=== PATIENT | female | born 1945 | race Caucasian/White ===

== ENCOUNTER → 2018-12-24 | Outpatient (CLI) | payer MEDICARE ==
[~2018-12-24] MED LIST: IOPAMIDOL 370 MG/ML 200 ML INFUS..BTL INJ ONE; SODIUM CHLORIDE 0.9% 50ML 50 ML ONE
[2018-12-24 10:12] LABS: BLOOD UREA NITROGEN 9 mg/dL (7-26); BUN/CREATININE RATIO 10 (6-25); CREATININE, SERUM 0.89 mg/dL (0.57-1.11); EST GLOMERULAR FILTRATION RATE > 60 ML/MIN (60-)
--- NOTE | 2018-12-24 11:31 | Diagnostic Imaging Report ---
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 TECHNIQUE: Axial CT images were obtained through the neck with intravenous, iodine based contrast. Coronal and sagittal reconstructions obtained from the axial data. One or more of the following dose reduction techniques were used: Automated exposure control, adjustment of the mA and/or kV according to patient size, and/or utilization of iterative reconstruction technique. Dental streak artifacts obscure some details. DISCUSSION: The left torus tubarius is mildly atrophic. The left hemitongue is mildly atrophic with mild fatty replacement. 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 The visualized upper aerodigestive tract is otherwise unremarkable. A mildly prominent left submandibular lymph node measures 1.3 cm. No other radiographically significant cervical adenopathy is seen. The thyroid gland is atrophic. The bilateral submandibular and left parotid glands are atrophic. The right parotid gland is unremarkable. Mild bilateral carotid bulb calcified plaque is present without significant stenosis. 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 The left sternocleidomastoid muscle is atrophic. Otherwise, the design leader, parapharyngeal, posterior cervical, and perivertebral spaces are unremarkable. Bilateral ocular lens replacement. Otherwise, the visualized intracranial compartment and orbits are grossly unremarkable. There is minimal mucosal thickening in the right maxillary sinus. Small right and trace left mastoid effusions are present. There are mild degenerative changes throughout the spine. There is scarring in the bilateral medial upper lungs. IMPRESSION: 1. Mildly atrophic left torus tubarius and left tongue may be due to posttreatment change. 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 2. 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 3. The visualized upper aerodigestive tract is otherwise unremarkable. 4. Mildly prominent left submandibular lymph node. No other radiographically significant cervical adenopathy. 5. Scarring in the bilateral medial upper lungs. Signed by: Dr. Desmond Vincent M.D. on 12/24/2018 11:27 AM
== END ==
LOC: CT 09:15
PROVIDERS: ATTEND Otolaryngology
DX: R13.13 Dysphagia, pharyngeal phase (principal); R05 Cough
CPT/HCPCS: 36415; 70491; 82565; 84520; Q9967

== ENCOUNTER → 2018-12-31 | Outpatient (CLI) | payer MEDICARE ==
--- NOTE | 2018-12-31 16:24 | Diagnostic Imaging Report ---
PROCEDURE: X-RAY MODIFIED BARIUM SWALLOW COMPARISON: None. INDICATION: Dysphasia Radiation Details: Fluoroscopy time: 2.5 minutes Cumulative dose: 5.3 mGy DISCUSSION: Fluoroscopic examination was performed in conjunction with speech pathology during swallowing a variety of thin and thick liquid consistencies. Provided images demonstrate mild laryngeal penetration and no aspiration. CONCLUSION: Modified barium swallow demonstrating mild laryngeal penetration and no aspiration. Please refer to the speech pathology report for further details. Signed by: Jenni Curtis MD on 12/31/2018 4:20 PM
== END ==
LOC: DX 13:39
PROVIDERS: ATTEND Otolaryngology
DX: R13.13 Dysphagia, pharyngeal phase (principal); R05 Cough
CPT/HCPCS: 74230

== ENCOUNTER 2019-02-05 12:30 | Outpatient (RCR) | payer MEDICARE ==
--- NOTE | 2019-01-09 13:15 | NUR ---
Clinical Swallow Evaluation/Initial Treatment Session Patient is a 73 year old female with diagnosis of dysphagia. Pt with c/o coughing/choking with PO intake. PMH: left tonsilar CA in 2000 with chemotherapy and radiation treatments, pt with residula decrease in saliva and lingual weakness. 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 Pt takes medication for reflux and has constant throat clearing prior to evaluation. Pt presented with nasal emisions with speech, concern for velopharyngeal incompetency as pt c/o liquids coming out of her left nostril at times since surgery to remove skin CA on/in nose CT of neck 12/24/18 1. Mildly atrophic left torus tubarius and left tongue may be due to posttreatment change. 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 2. Mild medial deviation of the left true vocal fold suggest left vocal cordpalsy. 3. The visualized upper aerodigestive tract is otherwise unremarkable. 4. Mildly prominent left submandibular lymph node. No other radiographically significant cervical adenopathy. 5. Scarring in the bilateral medial upper lungs.Pt participated in a modified barium swallow study on 12/31/18. MBS results: Pt with considerable pharyngeal residue and compromised airway caused by reduced tongue base strength and reduced pharyngeal constriction. Nasal regurgitation not witnessed on exam, palatal weakness present. Clinical Impressions Pt with oropharyngeal dysphagia with penetration of liquids and considerable pharyngeal residue post swallow. Dysphagia was judged to be secondary to decreased coordination of the swallow, decreased tongue base strength, and decreased pharyngeal constriction. Patient was seen today in the outpatient clinic for initial treatment of Neuromuscular Electrical Stimulation (NMES) with VitalStim Therapy and traditional dysphagia therapy with pharyngeal exercises. Pt was seen with no family present. Pt was able to participate in an oral motor exam. Patient tolerates room air. Hearing appeared to be WFL. Provided extensive education re: basic anatomy and physiology of swallow structures, need for therapy, purpose of exercises and NMES, and future plan of care. Pt indicated understanding. Pt was given intermittent small trials of water. Pt was instructed to take small sips and swallow hard, feeling all the muscles in her throat contract. Placement 3b was used to target the mylohyoid muscle, the anterior belly of the digastric muscle, the sternohyoid muscle, the omohyoid muscle, the geniohyoid muscle, and the middle pharyngeal constrictors. Channel 1 of the electrodes was aligned horizontally just above the hyoid bone and channel 2 of the electrodes was aligned horizontally at the level of the thyroid notch. This placement was used to improve base of tongue strength, pharyngeal constriction, and UES function. Pt initially tolerated 7.5 mA, but as the session progressed pt tolerated 10.5 mA. Pt received 53 minutes of stimulation. Cough noted X 0, throat clear X 6. Education provided as indicated. All questions were answered. Impressions: Pt tolerated initial session of NMES well. Pt/family continues to report and demonstrate s/s of aspiration during swallows of material for pleasure which, per her family, significantly interferes with her quality of life. Pt is a good candidate for dysphagia exercises and NMES for improvement of strength and coordination of swallow. Recommendations: 1. Dysphagia therapy to include traditional exercises and NMES 3X/week for 4 weeks for a total of 12 treatment sessions 2. Home exercise program 3. Repeat MBS in 4 weeks with new goals to be determined at that time Penitentiary Goal: Pt will tolerate least restrictive diet without s/s of aspiration as judged by an objective evaluation. Short Term Goals: 1. Pt will complete 3 repetitions of a set of dysphagia exercises to improve laryngeal elevation, base of tongue retraction, and laryngeal closure, 10 repetitions per exercise, with minimal cues. 2. Pt will tolerate NMES for 45 60 minutes with no clinical s/s of aspiration to improve strength of pharyngeal constrictors, hyolaryngeal excursion, and safety with po intake. 3. Pt will complete home dysphagia exercise program targeting laryngeal elevation, base of tongue strength, cricopharyngeal function, neck stretches post radiation therapy, palatal strengthening independently. 4. Pt will follow aspiration precautions with independence. 5. Pt will participate in a repeat Modified Barium Swallow study to objectively re-assess swallow safety and function and determine safest diet. Gretchen Prather M.S. CCC-NUMERICAL CONTROL OPERATOR Date of Session: 01/09/19 Dysphagia Evaluation X 60 minutes NOMS Rating for Swallowing: Level 5
== END 2019-02-06 ==
LOC: ST 12:30
PROVIDERS: ATTEND Otolaryngology
DX: K13.79 Other lesions of oral mucosa (principal); R13.13 Dysphagia, pharyngeal phase

== ENCOUNTER → 2019-02-06 | Outpatient (CLI) | payer MEDICARE ==
--- NOTE | 2019-02-06 17:07 | Diagnostic Imaging Report ---
PROCEDURE: X-RAY MODIFIED BARIUM SWALLOW COMPARISON: None. INDICATION: Dysphasia Radiation Details: Fluoroscopy time: 1.8 minutes Cumulative dose: 4.8 mGy DISCUSSION: Fluoroscopic examination was performed in conjunction with speech pathology during swallowing a variety of thin and thick liquid consistencies. Provided images demonstrate laryngeal penetration but no aspiration. CONCLUSION: Modified barium swallow demonstrating laryngeal penetration but no aspiration. Please refer to the speech pathology report for further details. Signed by: Jenni Curtis MD on 02/06/2019 5:04 PM
== END ==
LOC: DX 11:32
PROVIDERS: ATTEND Otolaryngology
DX: R13.12 Dysphagia, oropharyngeal phase (principal)
CPT/HCPCS: 74230

== ENCOUNTER 2019-02-28 11:48 | Outpatient (RCR) | payer MEDICARE | END 2019-03-08 | LOC: ST 11:48 | PROVIDERS: ATTEND Otolaryngology | DX: R13.13 Dysphagia, pharyngeal phase (principal) ==